=== PATIENT | female | born 1985 | race Asian ===

== ENCOUNTER 2017-08-15 01:15 | Inpatient (IN) | payer OTHER ==
[~2017-08-15] VITALS: Ht 162.6 cm; Wt 72.6 kg
[2017-08-15] MEDS ORDERED: FERR-252 PO (01:56)
[2017-08-15] MEDS ORDERED: PREN-546 PO (01:56)
[2017-08-15] MEDS ORDERED: LACTATED RINGERS 1,000 ML IV SCH (01:58)
[2017-08-15] MEDS ORDERED: CITRIC ACID/SODIUM CITRATE 30 ML UDC PO SCH (02:15)
[2017-08-15 02:34] LABS: BASOPHILS # (AUTO) 0.1 K/uL (0.00-0.22); BASOPHILS % (AUTO) 0.8 % (0.0-2.0); EOSINOPHILS # (AUTO) 0.1 K/uL (0-0.4); EOSINOPHILS % (AUTO) 0.7 % (0.0-4.0); HEMATOCRIT 34.5 % (36-48); HEMOGLOBIN 11.7 g/dL (12.0-16.0); LYMPHOCYTES # (AUTO) 1.8 K/uL (2.5-16.5); LYMPHOCYTES % (AUTO) 17.7 % (20.5-51.1); MEAN CORPUSCULAR HEMOGLOBIN 32 pg (27-31); MEAN CORPUSCULAR HGB CONC 34 g/dL (33-37); MEAN CORPUSCULAR VOLUME 94 fL (80-94); MONOCYTES # (AUTO) 0.4 K/uL (0.8-1.0); MONOCYTES % (AUTO) 3.9 % (1.7-9.3); NEUTROPHILS % (AUTO) 76.9 % (42.2-75.2); PLATELET COUNT (AUTO) 145 K/uL (140-450); RED BLOOD CELL COUNT(AUTO) 3.68 MIL/uL (4.20-5.40); RED CELL DISTRIBUTION WIDTH 12.7 % (11.6-13.7); WHITE BLOOD COUNT (AUTO) 10.4 K/uL (4.8-10.8)
[2017-08-15 02:49] LABS: APPEARANCE,URINE CLOUDY (CLEAR); BILIRUBIN,URINE NEGATIVE (NEGATIVE); BLOOD, URINE 2+ (NEGATIVE); COLOR,URINE YELLOW (YELLOW); LEUKOCYTE ESTERASE ,URINE 1+ (NEGATIVE); NITRITE, URINE NEGATIVE (NEGATIVE); PH,URINE 6.5 (5.0-9.0); UGLUCOSE NEGATIVE (NEGATIVE)
[2017-08-15 02:57] LABS: ALBUMIN 2.6 g/dL (3.4-5.0); ANION GAP 15.8 (8-16); CARBON DIOXIDE 22.9 mmol/L (21-32); CREATININE 0.5 mg/dL (0.6-1.3); POTASSIUM 3.7 mmol/L (3.5-5.1); TOTAL BILIRUBIN 0.1 mg/dL (0.0-1.0)
[2017-08-15 03:11] VITALS: BP 100/56
[2017-08-15 03:43] LABS: RBC,URINE TOO NUMEROUS TO COUN /HPF (0-5); WBC,URINE 16-25 (MOD) /HPF (0-5)
[2017-08-15] MEDS ORDERED: CLINDAMYCIN 900 MG/6 ML VIAL IV ONE (05:08)
[2017-08-15] MEDS ORDERED: CITRIC ACID/SODIUM CITRATE 30 ML UDC ONE (05:45)
[2017-08-15] MEDS ORDERED: OXYTOCIN 10 UNITS/ML VIAL ONE (05:58)
[2017-08-15] MEDS ORDERED: METHYLERGONOVINE 0.2 MG/ML AMP ONE (05:59)
[2017-08-15] MEDS ORDERED: CLINDAMYCIN 900 MG in NACL 0.9% 100 ML IV SCH (06:00)
[2017-08-15] MEDS ORDERED: ceFAZolin 2,000 MG in NACL 0.9% 100 ML IV SCH (06:00)
[2017-08-15] MEDS ORDERED: MORPHINE PRES FREE 10 MG/10 ML AMP IV ONE (06:08)
[2017-08-15] MEDS ORDERED: SIMETHICONE 80 MG TAB.CHEW PO PRN (06:15)
[2017-08-15] MEDS ORDERED: oxyCODONE/APAP 5/325 MG 1 TAB TAB PO PRN (06:15)
[2017-08-15] MEDS ORDERED: METHYLERGONOVINE 0.2 MG/ML AMP IM PRN (06:15)
[2017-08-15] MEDS ORDERED: MEASLES, MUMPS, AND RUBELLA 1 VIAL SQVAC PRN (06:15)
[2017-08-15] MEDS ORDERED: TRIMETHOBENZAMIDE 200 MG/2 ML SYR IM PRN (06:15)
[2017-08-15] MEDS ORDERED: TEMAZEPAM 15 MG CAP PO PRN (06:15)
[2017-08-15] MEDS ORDERED: ONDANSETRON 4 MG/2 ML VIAL IVP ONE (06:19)
[2017-08-15] MEDS ORDERED: KETOROLAC 30 MG/ML VIAL IVP ONE (06:19)
[2017-08-15] MEDS ORDERED: BUPIVACAINE-MPF 0.75% 10 ML VIAL INJ ONE (06:19)
[2017-08-15] MEDS ORDERED: METOCLOPRAMIDE 10 MG/2 ML INJ VIAL IVP ONE (06:19)
[2017-08-15] MEDS ORDERED: OXYTOCIN 20 UNITS in LACTATED RINGERS 1,000 ML IV SCH (06:34)
[2017-08-15] MEDS ORDERED: diphenhydrAMINE 50 MG/ML VIAL IVP PRN (06:35)
[2017-08-15] MEDS ORDERED: KETOROLAC 30 MG/ML VIAL IVP PRN (06:35)
[2017-08-15] MEDS ORDERED: ONDANSETRON 4 MG/2 ML VIAL IVP PRN (06:35)
[2017-08-15] MEDS ORDERED: NALOXONE 0.4 MG/ML VIAL IVP PRN ×2 (06:35)
--- NOTE | 2017-08-15 09:20 | NUR ---
PATIENT HAS BEEN SCREENED AND CATEGORIZED LOW NUTRITION RISK. PATIENT WILL BE SEEN WITHIN 7 DAYS OF ADMISSION. 08/21/[address]
[2017-08-15 13:06] LABS: RAPID PLASMA REAGIN NON-REACTIVE (Non Reactiv)
[2017-08-15] MEDS: OXYTOCIN 20 UNITS in LACTATED RINGERS 1,000 ML IV SCH ×2 (14:30→21:25)
[2017-08-15] MEDS ORDERED: DOCUSATE SOD/SENNA 50/8.6 MG 1 TAB PO SCH (21:00)
[2017-08-16 06:14] LABS: HEMATOCRIT 34.3 % (36-48)
[2017-08-16 06:33] LABS: HEMOGLOBIN 11.7 g/dL (12.0-16.0); MEAN CORPUSCULAR HEMOGLOBIN 32 pg (27-31); MEAN CORPUSCULAR HGB CONC 34 g/dL (33-37); MEAN CORPUSCULAR VOLUME 94 fL (80-94); PLATELET COUNT (AUTO) 138 K/uL (140-450); RED BLOOD CELL COUNT(AUTO) 3.65 MIL/uL (4.20-5.40); RED CELL DISTRIBUTION WIDTH 12.4 % (11.6-13.7); WHITE BLOOD COUNT (AUTO) 12.5 K/uL (4.8-10.8)
[2017-08-16] MEDS: HYDROcodone/APAP 5/325 MG 1 TAB TAB PO PRN ×3 (07:58→20:07)
[2017-08-16 08:56] LABS: BASOPHILS % (MANUAL) 1 % (0-2); LYMPHOCYTES % (MANUAL) 19 % (20-46); MONOCYTES % (MANUAL) 4 % (5-12)
[2017-08-16] MEDS: IBUPROFEN 800 MG TAB PO PRN (10:14)
[2017-08-17] MEDS: HYDROcodone/APAP 5/325 MG 1 TAB TAB PO PRN (03:25)
[2017-08-17] MEDS: IBUPROFEN 800 MG TAB PO PRN (11:32)
== END 2017-08-17 16:35 | disposition home or self-care (01) | DRG 765 ==
LOC: MLD 01:15 → MFCC 08:00
PROVIDERS: ADMIT Obstetrics & Gynecology; ATTEND Obstetrics & Gynecology
PROC: 10D00Z1 Extraction of Products of Conception, Low, Open Approach (ICD-10-PCS; principal; 2017-08-15 06:00)
PROC: 3E0234Z Introduction of Serum, Toxoid and Vaccine into Muscle, Percutaneous Approach (ICD-10-PCS; 2017-08-17)
DX: O32.1XX0 Maternal care for breech presentation, not applicable or unspecified (principal); O23.43 Unspecified infection of urinary tract in pregnancy, third trimester; O89.4 Spinal and epidural anesthesia-induced headache during the puerperium; Z88.8 Allergy status to other drugs, medicaments and biological substances; Z3A.39 39 weeks gestation of pregnancy; Z23 Encounter for immunization; Z37.0 Single live birth
CPT/HCPCS: 36415; 80053; 81001; 85025; 86592; 86886; 86900; 86901; 87086; 90715; J0690; J1885; J2210; J2270; J2405; J2590; J2765; J3490; J7030; J7120